=== PATIENT | female | born 1955 | race Caucasian/White ===

== ENCOUNTER 2016-08-01 21:41 | Emergency (ER) | payer OTHER ==
--- NOTE | 2016-08-01 21:51 | ER Document Report ---
ED Neck/Back Problem - General Chief Complaint: Back Pain Stated Complaint: BACK PAIN Notes: The patient is a 61-year-old female, past medical history multiple spinal surgeries, neuropathy, presents with worsening neuropathy. She has not taken her Lyrica or Neurontin that she was prescribed by her neurologist in the past. She is requesting a dose of Lyrica. Has an appointment with her primary care physician tomorrow. She has had multiple EMGs without finding a cause of her radiculopathy. Denies saddle anesthesia, difficulty with bowel or bladder, fevers, history of IVDA, nausea, vomiting, abdominal pain, chest pain, shortness of breath or difficulty walking. TRAVEL OUTSIDE OF THE [place] IN LAST 30 DAYS: No - Related Data Allergies/Adverse Reactions: No Known Allergies Allergy (Verified 12/03/15 22:00) Past Medical History - General Information source: Patient - Social History Smoking Status: Unknown if Ever Smoked Family History: Reviewed & Not Pertinent - Past Medical History Cardiac Medical History: Reports: Hx Hypertension Musculoskeltal Medical History: Reports Hx Musculoskeletal Trauma Past Surgical History: Reports: Hx Appendectomy, Hx Hysterectomy, Hx Orthopedic Surgery - c4-c7 fusion - Immunizations Hx Diphtheria, Pertussis, Tetanus Vaccination: No Review of Systems - Review of Systems Notes: REVIEW OF SYSTEMS: CONSTITUTIONAL: -fevers, -chills EENT: -eye pain, -difficulty swallowing, -nasal congestion CARDIOVASCULAR:-chest pain, -syncope. RESPIRATORY: -cough, -SOB GASTROINTESTINAL: -abdominal pain, - nausea, -vomiting, -diarrhea GENITOURINARY: -dysuria, -hematuria MUSCULOSKELETAL: +back pain, -neck pain SKIN: -rash or skin lesions. HEMATOLOGIC: -easy bruising or bleeding. LYMPHATIC: -swollen, enlarged glands. NEUROLOGICAL: -altered mental status or loss of consciousness, -headache, + neuropathy PSYCHIATRIC: -anxiety, -depression. ALL OTHER SYSTEMS REVIEWED AND NEGATIVE. Physical Exam - Vital signs Vitals: Temp Pulse Resp BP Pulse Ox 98.2 F 81 18 147/91 H 97 08/01/16 21:52 08/01/16 21:52 08/01/16 21:52 08/01/16 21:52 08/01/16 21:52 - Notes Notes: PHYSICAL EXAMINATION: GENERAL: Well-appearing, well-nourished and in no acute distress. HEAD: Atraumatic, normocephalic. EYES: Pupils equal round and reactive to light, extraocular movements intact, sclera anicteric, conjunctiva are normal. ENT: nares patent, oropharynx clear without exudates. Moist mucous membranes. NECK: Normal range of motion, supple without lymphadenopathy LUNGS: Breath sounds clear to auscultation bilaterally and equal. No wheezes rales or rhonchi. HEART: Regular rate and rhythm without murmurs ABDOMEN: Soft, nontender, normoactive bowel sounds. No guarding, no rebound. No masses appreciated. EXTREMITIES: Normal range of motion, no pitting or edema. No cyanosis. NEUROLOGICAL: Cranial nerves grossly intact. Normal speech, normal gait. Tingling and pain in bilateral hands and forearms. PSYCH: Normal mood, normal affect. SKIN: Warm, Dry, normal turgor, no rashes or lesions noted. Course - Re-evaluation Re-evalutation: No red flag signs for low back pain. Patient requesting MRI. Instructed her that there is no emergent reason for MRI at this time and to follow-up with her primary care physician as already scheduled at her appointment tomorrow. She is requesting a dose of Lyrica and lidocaine patch to help her sleep tonight. She is also requesting a shot of morphine, but she did not take her home 95 mg of OxyContin today. Told her to go home and take her normal narcotic dose. Patient has had multiple EMGs and seen multiple neurologist for this neuropathy. Told her to follow-up with the neurologist for further evaluation and treatment. No emergent issues identified at this time. - Vital Signs Vital signs: Temp Pulse Resp BP Pulse Ox 98.2 F 81 18 147/91 H 97 08/01/16 21:52 08/01/16 21:52 08/01/16 21:52 08/01/16 21:52 08/01/16 21:52 Discharge - Discharge Clinical Impression: Neuropathy Chronic back pain Qualifiers: Back pain location: back pain in unspecified location Back pain laterality: bilateral Qualified Code(s): M54.9 - Dorsalgia, unspecified Condition: Good Disposition: HOME, SELF-CARE Additional Instructions: LOW BACK PAIN: Three out of every four people will have an episode of disabling back pain during their lifetime. Most commonly the pain is due to straining of the muscles and ligaments in the low back. Usual treatment includes: (1) Rest on a firm surface. Avoid lying on your stomach. (2) Ice pack the painful area. After a few days, gentle heat may be used intermittently to relax the area, or ice packs can be continued. (3) Medication may be needed -- muscle relaxers and antiinflammatory medicines are commonly used. (4) As the back improves, exercises are prescribed to strengthen the back and abdominal muscles. Your doctor will advise you on the proper care for your back at each stage in your recovery. You may be better in a few days -- or healing may take several weeks. If new symptoms of a "herniated disc" (radiation of pain, numbness, or tingling down the back of the leg or weakness in the leg) occur, you should be re-examined. Further testing may be necessary. ICE PACKS: Apply ice packs frequently against the painful area. Many different schedules are recommended, such as "20 minutes on, 20 minutes off" or "one hour ice, two hours rest." If you need to work, you may need to go longer between ice treatments. You should plan to have the area ice packed AT LEAST one fourth of the time. The ice should be applied over the wrap, tape, or splint, or over a layer of cloth -- not directly against the skin. Some ice bags have a built-in cloth and can be put directly on the skin. WARM PACKS: After approximately two days, apply gentle heat (such as a heating pad or hot water bottle) for about 20 to 30 minutes about every two hours -- at least four times daily. Warmth and elevation will help you make a more rapid recovery , and will ease the pain considerably. Do not use HOT heat, and never apply heat for longer than 30 minutes. The continuous heat can invisibly damage skin and muscles -- even when no burn is seen on the surface. Damaged muscles can make you MORE sore. FOLLOW-UP CARE: If you have been referred to a physician for follow-up care, call the physician s office for an appointment as you were instructed or within the next two days. If you experience worsening or a significant change in your symptoms, notify the physician immediately or return to the Emergency Department at any time for re-evaluation. Neuropathy Your symptoms are due to neuropathy. Neuropathy is nerve damage. There are many causes, including diabetes, immune disease, alcohol, blood vessel disease, and vitamin deficiency. The usual symptoms are pain and numbness. Neuropathy can occur anywhere, but it's most likely in the "longest" nerves. That's why the feet are most often affected. Sometimes the nerve damage can heal. But if the symptoms have lasted more than a few months, the damage is permanent. To avoid further damage, treat your underlying health problems carefully. If you have diabetes, keep the blood sugar as normal as possible. Avoid alcohol. Treat high blood pressure and high cholesterol. Treating chronic pain can be a problem. Obviously, you don't want to become addicted to pain medicine. Work closely with your doctor on pain management. Your options include antiinflammatory medicine, anti seizure medicine, antidepressants, and pain clinic management. Contact the doctor if there is a significant change. Forms: Elevated Blood Pressure Referrals: CHANTAL WADE MD [ACTIVE STAFF] - Follow up as needed
[2016-08-01 21:56] VITALS: BP 147/91
[2016-08-01] MEDS ORDERED: PREGABALIN 100 MG CAPSULE PO ONE (22:07)
[2016-08-01] MEDS ORDERED: LIDOCAINE 5% (700 MG) TRANSDERMAL ADH..PATCH TP ONE (22:08)
== END 2016-08-01 23:02 | disposition home or self-care (01) ==
LOC: ER 21:41
DX: G62.9 Polyneuropathy, unspecified (principal); M54.9 Dorsalgia, unspecified; I10 Essential (primary) hypertension; Z90.710 Acquired absence of both cervix and uterus; Z98.1 Arthrodesis status
CPT/HCPCS: 99283

== ENCOUNTER 2018-12-15 01:06 | Emergency (ER) | payer MEDICARE ==
[2018-12-15] MEDS ORDERED: GABAPENTIN 300 MG CAPSULE PO ONE (05:34)
--- NOTE | 2018-12-15 06:09 | ER Document Report ---
HPI - HPI Patient complains to provider of: Medication refill Time Seen by Provider: 12/15/18 05:34 Pain Level: 4 Context: Patient is a 63-year-old female presents to the emergency department because she ran out of her Lyrica. Patient states she knows that she misuses her Lyrica. States she has been 3 days without it. States she went to her primary care provider Dr. Trinh who refused to refill her medications because she still had 2 weeks left. States she did go to her pain management doctor who also refused to fill her Lyrica and her oxycodone and OxyContin. Patient states she has "plenty of oxycodone and OxyContin at home." States she has just been out of her Lyrica. Patient is complaining of generalized burning in bilateral hands and feet. States this is typically her neuropathy pain. Patient was initially complaining of nausea but is denying that complaint at this time. According to EMS report patient was given Zofran. Patient is denying any abdominal pain, chest pain, shortness of breath. States she typically takes 200 mg of Lyrica 4 times a day. I discussed with patient use of gabapentin. Patient states she would be willing to try gabapentin in place of her Lyrica. Past medical history: COPD, asthma, spinal stimulator, hyperlipidemia - REPRODUCTIVE Reproductive: DENIES: : Past Medical History - General Information source: Patient - Social History Smoking Status: Unknown if Ever Smoked Family History: Reviewed & Not Pertinent - Past Medical History Cardiac Medical History: Reports: Hx Hypertension Musculoskeletal Medical History: Reports Hx Musculoskeletal Trauma Past Surgical History: Reports: Hx Appendectomy, Hx Hysterectomy, Hx Orthopedic Surgery - c4-c7 fusion - Immunizations Hx Diphtheria, Pertussis, Tetanus Vaccination: No Vertical Provider Document - CONSTITUTIONAL Agree With Documented VS: Yes Notes: GENERAL: Alert, interacts well. No acute distress. HEAD: Normocephalic, atraumatic. EYES: Pupils equal, round, and reactive to light. Extraocular movements intact. ENT: Oral mucosa moist, tongue midline. NECK: Full range of motion. Supple. Trachea midline. LUNGS: Clear to auscultation bilaterally, no wheezes, rales, or rhonchi. No respiratory distress. HEART: Regular rate and rhythm. No murmur ABDOMEN: Soft, non-tender. Non-distended. Bowel sounds present in all 4 quadrants. EXTREMITIES: Moves all 4 extremities spontaneously. No edema, normal radial and dorsalis pedis pulses bilaterally. No cyanosis. 5 out of 5 strength all 4 extremities. capillary refill less than 2 seconds distally all 4 extremities BACK: no cervical, thoracic, lumbar midline tenderness. No saddle anesthesia, normal distal neurovascular exam. NEUROLOGICAL: Alert and oriented x3. Normal speech. cranial nerves II through XII grossly intact. PSYCH: Normal affect, normal mood. SKIN: Warm, dry, normal turgor. No rashes or lesions noted. - INFECTION CONTROL TRAVEL OUTSIDE OF THE [place] IN LAST 30 DAYS: No Course - Re-evaluation Re-evalutation: 12/15/18 06:07 Initially upon my arrival to the patient's room she is sleeping. She is easily arousable with verbal stimuli. Patient then starts crying and states she has no more Lyrica. States she knows that she abuses the medication and does not take it as prescribed. Patient is non-tachycardic and initially sleeping upon my evaluation. Discussed the use of gabapentin in place of Lyrica. Also discussed following up with primary care provider and pain management for continued care of her chronic diseases. Patient voices understanding stable for discharge. - Vital Signs Vital signs: Temp Pulse Resp BP Pulse Ox 98.2 F 75 16 141/103 H 94 12/15/18 01:50 12/15/18 01:50 12/15/18 01:50 12/15/18 01:50 12/15/18 01:50 Discharge - Discharge Clinical Impression: Medication withdrawal Qualifiers: Substance type: other psychostimulant Qualified Code(s): F15.93 - Other stimulant use, unspecified with withdrawal Condition: Stable Disposition: HOME, SELF-CARE Additional Instructions: As we discussed you have been seen and treated in the emergency department for potential medication withdrawal. Also as we discussed we will try you on gabapentin. Please take it as prescribed. Please also make sure you follow-up with your primary care provider and pain management for continued care of your chronic diseases. Please return to the emergency room for any other concerns. Prescriptions: Gabapentin [Neurontin 300 mg Capsule] 300 mg PO QHS #14 cap
[2018-12-15 06:30] VITALS: BP 152/86
== END 2018-12-15 06:41 | disposition home or self-care (01) ==
LOC: ER 01:06
DX: F19.939 Other psychoactive substance use, unspecified with withdrawal, unspecified (principal); G62.9 Polyneuropathy, unspecified; Z79.891 Long term (current) use of opiate analgesic; J44.9 Chronic obstructive pulmonary disease, unspecified; I10 Essential (primary) hypertension
CPT/HCPCS: 99283; A9270